=== PATIENT | male | born 1970 | race Caucasian/White ===

== ENCOUNTER 2016-09-22 12:12 | Inpatient (IN) | payer MEDICARE, OTHER ==
[~2016-09-22] VITALS: Ht 167.6 cm; Wt 117.9 kg
[2016-09-23 10:19] LABS: HEMOGLOBIN 15.7 gm/dl (14.0-17.5); RED BLOOD COUNT 5.12 M/UL (4.20-5.50); WHITE BLOOD COUNT 8.4 K/UL (4.5-11.0)
[2016-09-23 10:43] LABS: BUN/CREATININE RATIO 14 (0-10)
[2016-09-24 04:24] LABS: RED BLOOD COUNT 4.91 M/UL (4.20-5.50); WHITE BLOOD COUNT 7.5 K/UL (4.5-11.0)
[2016-09-24 04:58] LABS: BUN/CREATININE RATIO 16 (0-10)
[2016-09-24] MEDS ORDERED: COLCHICINE 0.60.6 MG PO (12:22)
[2016-09-24] MEDS ORDERED: VASOTEC 10 MG T10 MG PO (12:23)
[2016-09-24] MEDS ORDERED: COUMADIN5 MG PO (12:28)
== END 2016-09-24 13:08 | disposition home or self-care (01) | DRG 308 ==
LOC: PROG CARE 12:12 → ZEROF 09-23 09:14 → PROG CARE 09-23 11:31
PROVIDERS: Internal Medicine Cardiovascular Disease; ADMIT Family Medicine
DX: I49.5 Sick sinus syndrome (principal); I26.99 Other pulmonary embolism without acute cor pulmonale; Z68.41 Body mass index [BMI] 40.0-44.9, adult; J84.9 Interstitial pulmonary disease, unspecified; I10 Essential (primary) hypertension; E66.9 Obesity, unspecified; M10.9 Gout, unspecified; T45.515A Adverse effect of anticoagulants, initial encounter; Y92.239 Unspecified place in hospital as the place of occurrence of the external cause; R06.02 Shortness of breath; Z91.14 Patient's other noncompliance with medication regimen; Z79.899 Other long term (current) drug therapy; Z28.21 Immunization not carried out because of patient refusal; Z87.891 Personal history of nicotine dependence
CPT/HCPCS: 36415; 80048; 83735; 84439; 84443; 85025; 85610; 85730; 93270; J1644; J2250; J3010; J3370

== ENCOUNTER 2016-10-09 20:31 | Inpatient (IN) | payer MEDICARE ==
[~2016-10-09] VITALS: Ht 170.2 cm; Wt 110.0 kg
[~2016-10-09 20:31] MED LIST: COLCHICINE 0.60.6 MG PO; COUMADIN5 MG PO; VASOTEC 10 MG T10 MG PO
[2016-10-09] MEDS ORDERED: TORADOL 10 MG T10 MG PO (23:20)
[2016-10-10 04:52] LABS: HEMOGLOBIN 12.7 gm/dl (14.0-17.5); RED BLOOD COUNT 4.19 M/UL (4.20-5.50)
[2016-10-10 05:06] LABS: BUN/CREATININE RATIO 13 (0-10)
[2016-10-11 05:45] LABS: BUN/CREATININE RATIO 11 (0-10)
[2016-10-12 04:27] LABS: HEMOGLOBIN 12.3 gm/dl (14.0-17.5); RED BLOOD COUNT 4.09 M/UL (4.20-5.50)
[2016-10-12 04:29] LABS: WHITE BLOOD COUNT 9.6 K/UL (4.5-11.0)
[2016-10-12 04:53] LABS: BUN/CREATININE RATIO 14 (0-10)
[2016-10-13] MEDS ORDERED: SOTALOL80 MG PO (11:04)
[2016-10-13] MEDS ORDERED: TYLENOL W/CODEIN1 E1 PO (11:05)
[2016-10-13] MEDS ORDERED: LEVAQUIN500 MG PO (11:07)
== END 2016-10-13 14:14 | disposition home or self-care (01) | DRG 243 ==
LOC: PROG CARE 20:31 → CCU 22:41 → PROG CARE 22:41
PROVIDERS: Internal Medicine; Physician Assistant Surgical; ADMIT Internal Medicine Cardiovascular Disease
PROC: 0JH606Z Insertion of Pacemaker, Dual Chamber into Chest Subcutaneous Tissue and Fascia, Open Approach (ICD-10-PCS; principal; 2016-10-12)
PROC: 02H63JZ Insertion of Pacemaker Lead into Right Atrium, Percutaneous Approach (ICD-10-PCS; 2016-10-12)
PROC: 02HK3JZ Insertion of Pacemaker Lead into Right Ventricle, Percutaneous Approach (ICD-10-PCS; 2016-10-12)
PROC: B51N1ZZ Fluoroscopy of Left Upper Extremity Veins using Low Osmolar Contrast (ICD-10-PCS; 2016-10-12)
DX: I49.5 Sick sinus syndrome (principal); I47.1 Supraventricular tachycardia; I10 Essential (primary) hypertension; E78.5 Hyperlipidemia, unspecified; M1A.9XX0 Chronic gout, unspecified, without tophus (tophi); M10.9 Gout, unspecified; Z86.711 Personal history of pulmonary embolism; Z86.718 Personal history of other venous thrombosis and embolism; Z87.891 Personal history of nicotine dependence; Z87.898 Personal history of other specified conditions; Z79.01 Long term (current) use of anticoagulants; Z79.1 Long term (current) use of non-steroidal anti-inflammatories (NSAID); Z79.899 Other long term (current) drug therapy; Z98.890 Other specified postprocedural states; Z82.49 Family history of ischemic heart disease and other diseases of the circulatory system
CPT/HCPCS: ECHO; 33208; 36415; 71010; 73610; 80048; 80061; 84132; 85027; 85610; 93005; 93306; 93970; C1785; C1898; J0360; J1644; J1650; J2250; J3010; J3370; J7040; J7050; J7070; Q9965

== ENCOUNTER 2020-10-02 13:32 | Emergency (ER) | payer MEDICARE ==
[~2020-10-02 13:32] MED LIST changes: +FIORINAL 50-321 EACH PO; +HYDROCHLOROTHIA25 MG PO; +LEVAQUIN500 MG PO; +SOTALOL80 MG PO; +TORADOL 10 MG T10 MG PO; +TYLENOL W/CODEIN1 E1 PO; +ZESTRIL40 MG PO
[2020-10-02 14:52] LABS: HEMOGLOBIN 16.1 gm/dl (14.0-17.5); RED BLOOD COUNT 5.19 M/UL (4.20-5.50); WHITE BLOOD COUNT 7.1 K/UL (4.5-11.0)
[2020-10-02 15:37] LABS: BUN/CREATININE RATIO 13 (0-10)
[2020-10-02] MEDS ORDERED: SOTALOL80 MG PO (17:34)
== END 2020-10-02 17:45 | disposition home or self-care (01) ==
LOC: ER1 13:32
PROVIDERS: Student in an Organized Health Care Education/Training Program
DX: R00.2 Palpitations (principal); I48.91 Unspecified atrial fibrillation; I10 Essential (primary) hypertension; Z79.02 Long term (current) use of antithrombotics/antiplatelets; Z79.899 Other long term (current) drug therapy
CPT/HCPCS: 71045; 80053; 82550; 82553; 83735; 83874; 83880; 84100; 84484; 85025; 93005; 96374; 99285; J1940

== ENCOUNTER 2021-01-24 15:50 | Emergency (ER) | payer MEDICARE | END 2021-01-24 17:30 | disposition home or self-care (01) | LOC: ER1 15:50 | DX: I82.402 Acute embolism and thrombosis of unspecified deep veins of left lower extremity (principal); Z86.718 Personal history of other venous thrombosis and embolism | CPT/HCPCS: 99283 ==